=== PATIENT | male | born 1950 | race Caucasian/White ===

== ENCOUNTER 2025-01-02 10:36 | Emergency (ER) | payer MEDICARE, SELFPAY ==
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
[2025-01-02 10:38] VITALS: BP 105/59; PULSE 78; RESP 18; TEMP 36.6; O2SAT 98
--- NOTE | 2025-01-02 10:38 | ECG_ITS ---
Test Date: 2025-01-02 10:43:55 Measurements Intervals [place] Rate: 77 P: 25 WA: 179 QRS: -54 QRSD: 114 T: 51 QT: 401 QTc: 454 Interpretive Statements SINUS RHYTHM LEFT AXIS DEVIATION POSSIBLE LEFT ATRIAL ENLARGEMENT POOR R WAVE PROGRESSION CONSIDER INFERIOR INFARCT, AGE INDETERMINATE BASELINE ARTIFACT- I, II, III, AVR, AVL, AVF, V1-V2, V4-V6 ABNORMAL ECG No previous ECG available for comparison Electronically Signed On 01-03-2025 06:43:05 CDT by Cecil Carrillo D.O.
[2025-01-02 11:03] LABS: Basophils Absolute Auto 0.1 K/mm3 (0.0-0.1); Basophils Percent Auto 0.7 % (0.2-1.2); Eosinophils Absolute Auto 0.1 K/mm3 (0-0.3); Eosinophils Percent Auto 0.5 % (0-4.4); Hematocrit 47.2 % (42.0-52.0); Hemoglobin 15.5 g/dL (14.0-18.0); Immature Granulocyte Absolute 0.07 K/mm3 (0.00-0.031); Immature Granulocyte Percent A 0.7 % (0-0.5); Lymphocytes Absolute Auto 0.72 K/mm3 (0.9-3.2); Lymphocytes Percent Auto 6.7 % (18.3-44.2); Mean Corpuscular HGB Conc 32.8 g/dl (32-36); Mean Corpuscular Hemoglobin 30.1 pg (26-34); Mean Corpuscular Volume 91.7 fl (80-100); Mean Platelet Volume 9.3 fl (7.4-10.4); Monocytes Absolute Auto 0.5 K/mm3 (0.1-0.6); Monocytes Percent Auto 4.3 % (2.6-8.5); Neutrophils Absolute Auto 9.4 K/mm3 (1.3-6.7); Neutrophils Percent Auto 87.1 % (45.5-73.1); Platelet Count Result 271 k/mm3 (150-375); Red Blood Count 5.15 M/mm3 (4.6-6.20); Red Cell Distribution Width 13.4 % (11.5-14.5); White Blood Count 10.7 K/mm3 (4.5-10.0)
[2025-01-02 11:18] LABS: Alanine Aminotransferase 24 U/L (6-50); Albumin Level 4.9 g/dL (3.5-5.1); Alkaline Phosphatase 81 U/L (38-126); Anion Gap 14 mmol/L (4-12); Aspartate Amino Transferase 33 U/L (17-59); Bilirubin,Total 0.5 mg/dL (0.2-1.3); Blood Urea Nitrogen 36 mg/dL (9-20); Calcium 10.8 mg/dL (8.4-10.2); Carbon Dioxide 25 mmol/L (22-30); Chloride 99 mmol/L (98-107); Estimated CRCL calculation 41 ml/min; Estimated Glomerular Filt Rate 45; Glucose 155 mg/dL (65-110); Potassium 3.8 mmol/L (3.4-5.0); Sodium 138 mmol/L (137-145)
[2025-01-02 12:20] VITALS: BP 127/74; PULSE 78; PULSE 80; RESP 13; O2SAT 100
--- OUTSIDE RECORDS SUMMARY | 2025-01-02 12:44 | XMS_ITS | Clinical Summary ---
Author Organization Located within [facility] Address [address] [address] Care Team Providers Care Sports Editor Name Role Phone Sydney Springer Primary Care Provider [phone] Tristin Hernández M.D. Unavailable [phone] Tristin Hernández M.D. Unavailable [phone] Nikolay Lee III Unavailable Unavailab le Allergies Active Allergy Reactions Criticality Noted Date Comments Dobutamine Other 05/25/2019 Tachycardia Medications bumetanide (BUMEX) 1 mg Oral tab Take 1 tablet by mouth twice daily. 60 tablet 2 06/17/2019 1:08 PM EXPERIENCE PLANNING STRATEGIST 9 Active sacubitril-vals danis (ENTRESTO) 24/26 mg Oral tablet Take 1 tablet by mouth every 12 hours. 60 tablet 2 06/17/2019 1:08 PM EXPERIENCE PLANNING STRATEGIST 9 Active spironolactone (ALDACTONE) 25 mg Oral tablet Take 1 tablet by mouth daily. 30 tablet 2 06/17/2019 1:08 PM EXPERIENCE PLANNING STRATEGIST 9 Active metoprolol succinate (TOPROL XL) 100 mg Oral extended release tablet Take 1 tablet by mouth daily. 90 tablet 3 9 Active ivabradine (CORLANOR) 5 mg Oral tablet Take 5 mg by mouth twice daily with meals. Take with meals. Active milrinone (PRIMACOR) 20 mg in D5W - 100 mL IV 20 mg/100 mL IV pgbk by Intravenous route continuously. 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 Chronic HFrEF (heart failure with reduced ejection fraction) 05/25/2019 Chronic kidney disease 05/25/2019 Social History Tobacco Use Types Packs/Day Years Used Date Smoking Tobacco: Never Assessed Sex and Gender Information Value Date Recorded Sex Assigned at Not on file Legal Sex Male 8:18 AM CDT Gender Identity Not on file Sexual Orientation Not on file Last Filed Vital Signs Vital Sign Reading Time Taken Comments Blood Pressure 122/72 10/28/2019 12:00 AM CDT Pulse 62 10/28/2019 12:00 AM CDT Temperature 37.1 C (98.7 F) 06/17/2019 7:01 AM EXPERIENCE PLANNING STRATEGIST Respiratory Rate 16 10/28/2019 12:00 AM CDT Oxygen Saturation 94% 10/28/2019 12:00 AM CDT Inhaled Oxygen Concentration - - Weight 95.3 kg (210 lb) 10/28/2019 12:00 AM CDT Height 165.1 cm (5' 5) 06/26/2019 3:10 PM EXPERIENCE PLANNING STRATEGIST Body Mass Index 34.95 06/26/2019 3:10 PM EXPERIENCE PLANNING STRATEGIST Plan of Treatment Health Maintenance Due Date Last Done Comments FIT Test 1950 FIT-DNA Test 1950 FLEXIBLE SIGMOIDOSCOPY 1950 TDAP/TD VACCINE (1 - Tdap) 1961 DEPRESSION SCREENING 1962 COLONOSCOPY 1995 COLORECTAL CANCER SCREENING 1995 Pneumococcal Vaccine: 50+ Ye ars (1 of 1 - PCV) 2000 ZOSTER SERIES VACCINE (1 of 2) 2000 Adult RSV VACCINE (1 - Risk 60-74 years 1-dose series) 2010 COVID-19 VACCINE (3 - 2023-2 5 season) 2024 10/29/2020, 09/24/2020 INFLUENZA VACCINE (Season Ended) 2025 08/19/2023, 05/23/2022, 06/15/2020, Additional history exists HEPATITIS C SCREENING Completed 06/09/2019 Procedures Procedure Name Priority Date/Time Associated Diagnosis Comments HCV C AB SCREEN WITH REFLEX TO VIRAL LOAD ROUTINE 06/09/2019 8:03 PM EXPERIENCE PLANNING STRATEGIST from Last 3 Months or Most Recently Relevant to Health Maintenance Results * HCV C Ab Screen with Reflex to Viral Load (06/09/2019 8:03 PM EXPERIENCE PLANNING STRATEGIST) Hepatitis C Antibody Non Reactive 06/10/2019 12:09 AM EXPERIENCE PLANNING STRATEGIST [facility] Serum 06/09/2019 8:03 PM EXPERIENCE PLANNING STRATEGIST 06/09/2019 8:34 PM EXPERIENCE PLANNING STRATEGIST Candida Zaidi M.D. LAB CHEMISTRY ORDERABLES F inal Result [facility] [address] [place] [address] from Last 3 Months or Most Recently Relevant to Health Maintenance Insurance MEDICARE A ONLY [facility] [employer] Advance Directives Documents on File Type Date Recorded Patient Director Emergency Services Expl anation Power of Thread Cutter Tender 06/19/2019 6:00 PM Matthew r of Thread Cutter Tender Power of Thread Cutter Tender 06/18/2019 5:25 PM Matthew r of Thread Cutter Tender * Full Code (Latest Code Status on File) Date Activated Date Inactivated Comments 06/09/2019 3:50 PM 06/17/2019 8:06 PM Care Teams Sports Editor Relationship Specialty Start Date End Date Racheal Sydney [address] [place] [address] [phone] PCP - General 05/07/19 Tristin Hernández M.D. [address] M[address] [place] [address] Environmental Science Professor Cardiology 05/07/19 Tristin Hernández M.D. [address] [place] [address] Referring Provider Cardiology 06/08/19 Nikolay Lee III [address] [place] [address] Environmental Science Professor Cardiology 10/28/19
--- OUTSIDE RECORDS SUMMARY | 2025-01-02 12:44 | XMS_ITS | Encounter Summary ---
Author Organization [facility] Address [address] [place] [address] Care Team Providers Care Medical Massage Therapist Name Role Phone Sydney Springer Primary Care Provider [phone] Tristin Hernández M.D. Unavailable [phone] Joselito Naik Unavailable Tristin Hernández M.D. Unavailable [phone] Nikolay Lee III Unavailable Unavailab le Encounter Details Date Type Department Care Team (Late Contact Info) Description 06/25/2019 Telephone [facility] [address] [place] [address] Sydney Man, RMelissa Social History Tobacco Use Types Packs/Day Years Used Date Smoking Tobacco: Never Assessed Sex and Gender Information Value Date Recorded Sex Assigned at Not on file Legal Sex Male 8:18 AM CDT Gender Identity Not on file Sexual Orientation Not on file documented as of this encounter Plan of Treatment Not on file documented as of this encounter Visit Diagnoses Not on filedocumented in this encounter Care Teams Medical Massage Therapist Relationship Specialty Start Date End Date Sydney Springer [address] [place] [phone] PCP - General 05/07/19 Tristin Hernández M.D. [address] [facility] [address] [place] [address] Machine Spring Former Cardiology 05/07/19 Joselito Naik [address] [phone] Referring Provider Cardiology 05/07/19 10/27/19 Tristin Hernández M.D. [address] M[address] [place] [address] Referring Provider Cardiology 06/08/19 Nikolay Lee III [address] [phone] Machine Spring Former Cardiology 10/28/19 documented as of this encounter
--- OUTSIDE RECORDS SUMMARY | 2025-01-02 12:44 | XMS_ITS | Encounter Summary ---
Author Organization [facility] Address [address] [place] [address] Care Team Providers Care Instructor Ballroom Dancing Name Role Phone Sydney Springer Primary Care Provider [phone] Tristin Hernández M.D. Unavailable [phone] Joselito Naik Unavailable Tristin Hernández M.D. Unavailable [phone] Nikolay Lee III Unavailable Unavailab le Encounter Details Date Type Department Care Team (Late st Contact Info) Description 06/25/2019 Orders Only [facility] [address] [place] [address] Sydney Man, RAlejandrinaNAlejandrina Social History Tobacco Use Types Packs/Day Years [...] on filedocumented in this encounter Care Teams Instructor Ballroom Dancing Relationship Specialty Start Date End Date Sydnye Springer [address] [place] [phone] PCP - General 05/07/19 Tristin Hernández M.D. [address] [facility]. M/C [address] [place], [place] [id number] Realty Specialist Cardiology 05/07/19 Joselito Naik [address] [phone] Referring Provider Cardiology 05/07/19 10/27/19 Tristin Hernández M.D. [address] M[address] [place] [address] Referring Provider Cardiology 06/08/19 Nikolay Lee III [address] [phone] Realty Specialist Cardiology 10/28/19 documented as of this encounter
--- OUTSIDE RECORDS SUMMARY | 2025-01-02 12:44 | XMS_ITS ---
Author Organization [facility] Address [address] [address] Care Team Providers Care Senior Research Engineer Name Role Phone Sydney Springer Primary Care Provider [phone] Tristin Hernández M.D. Unavailable [phone] Tristin Hernández M.D. Unavailable [phone] Nikolay Lee III Unavailable Unavailab le Transplant Episode Heart Candidate [facility] ([place], [place]) - [facility] Referred on 06/05/2019 Marked as Active on 06/05/2019 Heart CoordinatorLeta Brower R.N. Phone: N/A Fax: N/A Email: N/A Care Team Name Role Phone Fax Email Leta Brower R.N. Technology Project Manager N/A N/A N/A Events Pre-Transplant Referred: 06/05/2019
--- OUTSIDE RECORDS SUMMARY | 2025-01-02 12:44 | XMS_ITS | Encounter Summary ---
Author Organization [facility] Address [address] [place] [address] Care Team Providers Care Buckle Strap Drum Operator Name Role Phone Sydney Springer Primary Care Provider [phone] Tristin Hernández M.D. Unavailable [phone] Joselito Naik Unavailable Tristin Hernández M.D. Unavailable [phone] Nikolay Lee III Unavailable Unavailab le Encounter Details Date Type Department Care Team (Late st Contact Info) Description 06/03/2019 Abstract [facility] [address] [place] [address] Charmaine Kulkarni Social History Tobacco Use Types Packs/Day Years [...] on filedocumented in this encounter Care Teams Buckle Strap Drum Operator Relationship Specialty Start Date End Date RachealSydney phelps [address] [place] [phone] PCP - General 05/07/19 Tristin Hernández M.D. [address] [facility]. M/C [address] [place] [address] Adjunct Physical Education Instructor Cardiology 05/07/19 Joselito Naik [address] [phone] Referring Provider Cardiology 05/07/19 10/27/19 Tristin Hernández M.D. [address] M[address] [place] [address] Referring Provider Cardiology 06/08/19 Nikolay Lee III [address] [phone] Adjunct Physical Education Instructor Cardiology 10/28/19 documented as of this encounter
--- OUTSIDE RECORDS SUMMARY | 2025-01-02 12:44 | XMS_ITS | Encounter Summary ---
Author Organization [facility] Address [address] [place] [address] Care Team Providers Care Biodiesel Product Manager Name Role Phone Sydney Springer Primary Care Provider [phone] Tristin Hernández M.D. Unavailable [phone] Joselito Naik Unavailable Tristin Hernández M.D. Unavailable [phone] Nikolay Lee III Unavailable Unavailab le Encounter Details Date Type Department Care Team (Late st Contact Info) Description 06/24/2019 Orders Only [facility] PR[facility] Mail Address: 1. created 09/16/07 - Marissa Potterza [place]: Caprice Sanchez M.D. [address] [place] [address] M[address]C [address] [place] [address] Social History Tobacco Use Types Packs/Day Years Used Date Smoking Tobacco: Never Assessed Sex and Gender Information Value Date Recorded Sex Assigned at Not on file Legal Sex Male 8:18 AM CDT Gender Identity Not on file Sexual Orientation Not on file documented as of this encounter Procedure Notes * Caprice Sanchez M.D. - 06/24/2019 12:34 PM CSTAssociated Order(s): SOLID ORGAN PATIENT SUMMARY REPORT [facility] Transplant Immunology and Immunogenetics Laboratory [email or web address] 0006 CLIA License: [id number] [address] [place] [address], Room [address] number: [id number] [place] [address] UNOS number: [id number] Director: Carmelita Suero, Ph.D., D([facility]) CAP number: [id number] [facility] PFI number: [id number] Patient Name: WALLACE, RADHA Medical Record / ID number: [id number] Attending Physician: CAPRICE SANCHEZ Report date: 06/24/2019 Report type: Solid Organ Transplant Patient Report Institution: [facility] HLA Typing Results Sample Type: ACD+CLOT : 50 ID#: [id number] Sample Date: 06/09/19 Tested Date: 06/24/19 Class I: Molecular: A* B* C* 01:01 35:01 04:01 03:01 57:01 06:02 Serologic A B Bw Cw Equivalent(s): 1 35 6 4 3 57 4 6 Class II: Molecular: DRB1* DRB3* DRB4* DRB5* DQB1* DPB1* DQA1* DPA1* 01:01P 01:03N 03:03 04:01 01:01 01:03 07:01P 05:01P 464:01 02:[address] DQ Equivalent(s): 1 9 7 5 HLA low resolution performed by reverse sequence specific oligonucleotide probe hybridization (rSSOP) based microarray assay or Next Generation Sequencing (NGS). HLA high resolution typing performed by sequence-based typing (SBT) or NGS. HLA Antibody Results Last known IgG Antibodies: Strong: None Moderate/Weak: None Tested Sample Date Test Class Dilution Treat PRA% Strong Moderate/Weak Date 06/09/19 CL I AB ID CLASS I NEAT EDTA 0 06/10/19 06/09/19 CL II AB ID CLASS II NEAT EDTA 0 06/10/19 Antibody testing performed by solid phase assay(s). AB ID are the phenotype beads; SA are the single antigen beads Comments No HLA antibodies were detected. Radha Wallace ambiguities [2,3]: Allele ambiguities: DRB1*01:01: DRB1*01:100 has not been ruled out. DRB1*07:01: DRB1*07:79 and DRB1*07:93 have not been ruled out. DQB1*05:01: DQB1*05:183, DQB1*05:193, DQB1*05:194, and DQB1*05:195 have not been ruled out. Next generation sequencing (NGS), sequence specific primer (SSP), rSSOP, and/or additional sequencing primers were used to resolve allele ambiguities. High resolution typing is defined as a set of alleles that encode the same protein (P) sequence forthe antigen binding site of the HLA molecule and excludes alleles that are not expressed on the cell surface (e.g. null (N) alleles) [1, 6]. HLA ambiguities are resolved based on the National Marrow Donor Program (NMDP) confirmatory typing requirements policy [3] and the [place] Society for Histocompatibility and Immunogenetics (THIAGO) guidelines [2]. Basedon these guidelines, alleles that differ at positions outside the peptide binding groove/antigen recognition site and/oralleles of low frequency in the population are not resolved. REFERENCES 1. Rhea E, et al. Definitions of histocompatibility typing terms. Blood 2011; 118: y913-x804. 2. Spencer PEÑALOZA, et al. Common and well-documented HLA alleles: 2012 update to the CWD catalogue. TissueAntigens, 2013; 81: 194-203. 3. http://bioinformatics.nmdp.org/Policies/NMDP_Confirmatory_Typing_Requirements_(P DF).aspx 4. Damon R, et al. The HLA Dictionary 2008: a summary of HLA-A, -B, -C, - DRB1/3/4/5, -DQB1 alleles and their association with serologically defined HLA-A, -B, -C, -DR and -DQ antigens. Tissue Antigens 2009; 73: 95-170. 5. Torres K, et al. Effect of C-btcd-qqhkhaw matching at HLA-DPB1 in recipients of unrelated-donor haemopoietic-cell transplantation: a retrospective study. Lancet Oncol. 2012; 13: 366-74. 6. HLA alleles included in the protein (P) groups may be referenced at http://hla.alleles.org/alleles/p_groups.html. 7. Kamla M, et al. Blood 2014; 123:1270-8 8. Kamla Michele, et al. Blood 2013; 121:4603-10 Electronically signed by Designee Perla Peters MLT ([facility]), [facility] Carmelita Suero, PhD, D([facility]) Perla Peters MLT ([facility])REEMA, T Transplant Immunology and Immunogenetics Chief Histocompatibility Technologist Acquisition Marketing Coordinator Professor, Department of Pathology This test was developed in and its performance characteristics determined by the Transplant Immunology and Immunogenetics Laboratory, [facility]. It has not been cleared or approved by the U.S. Food and Drug Administration (FDA). The FDA has determined that such clearance or approval is not necessary. These tests are used for clinical purposes. It should not be regarded as investigational or for research. This laboratory is certified under the Clinical Laboratory Improvement Amendments of 1988 (CLIA) as qualified to perform high complexity clinical laboratory testing. CONVEYOR FEEDER documented in this encounter Plan of Treatment Not on file documented as of this encounter Procedures Procedure Name Priority Date/Time Associated Diagnosis Comments SOLID ORGAN PATIENT SUMMARY REPORT 06/24/2019 12:34 PM CAN CONVEYOR FEEDER documented in this encounter Results * SOLID ORGAN PATIENT SUMMARY REPORT (06/24/2019 12:34 PM CAN CONVEYOR FEEDER) 06/24/2019 12:3 4 PM CAN CONVEYOR FEEDER 06/24/2019 12:34 PM CAN CONVEYOR FEEDER Narrative Procedure Note Caprice Sanchez M.D. - 06/24/2019 12:34 PM CST [facility] Transplant Immunology and Immunogenetics Laboratory [email or web address] 0006 CLIA License: [id number] [address] [place] [address], [address] number: [id number] [place] [address] UNOS number: [id number] Director: Carmelita Suero, Ph.D., D([facility]) CAP number: [id number] [facility] PFI number: [id number] Patient Name: RADHA WALLACE Medical Record / ID number: [id number] Attending Physician: CAPRICE SANCHEZ Report date: 06/24/2019 Report type: Solid Organ Transplant PatientReport Institution: [facility] HLA Typing Results Sample Type: ACD+CLOT : 50 ID#: [id number] Sample Date: 06/09/19 Tested Date: 06/24/19 Class I: Molecular: A* B* C* 01:01 35:01 04:01 03:01 57:01 06:02 Serologic A B Bw Cw Equivalent(s): 1 35 6 4 3 57 4 6 Class II: Molecular: DRB1* DRB3* DRB4* DRB5* DQB1* DPB1* DQA1* DPA1* 01:01P 01:03N 03:03 04:01 01:01 01:03 07:01P 05:01P 464:01 02:[address] DQ Equivalent(s): 1 9 7 5 HLA low resolution performed by reverse sequence specific oligonucleotideprobe hybridization (rSSOP) based microarray assay or Next Generation Sequencing (NGS). HLA highresolution typing performed by sequence-based typing (SBT) or NGS. HLA Antibody Results Last known IgG Antibodies: Strong: None Moderate/Weak: None Tested Sample Date Test Class Dilution Treat PRA% Strong Moderate/Weak Date 06/09/19 CL I AB ID CLASS I NEAT EDTA 0 06/10/19 06/09/19 CL II AB ID CLASS II NEAT EDTA 0 06/10/19 Antibody testing performed by solid phase assay(s). AB ID are thephenotype beads; SA are the single antigen beads Comments No HLA antibodies were detected. Radha Wallace ambiguities [2,3]: Allele ambiguities: DRB1*01:01: DRB1*01:100 has not been ruled out. DRB1*07:01: DRB1*07:79 and DRB1*07:93 have not been ruled out. DQB1*05:01: DQB1*05:183, DQB1*05:193, DQB1*05:194, and DQB1*05:195 havenot been ruled out. Next generation sequencing (NGS), sequence specific primer (SSP), rSSOP,and/or additional sequencing primers were used to resolve allele ambiguities. High resolution typing is defined as a set of alleles that encode thesame protein (P) sequence for the antigen binding site of the HLA molecule and excludes alleles that are not expressed on thecell surface (e.g. null (N) alleles) [1, 6]. HLA ambiguities are resolved based on the National Marrow Donor Program(NMDP) confirmatory typing requirements policy [3] and the [place] Society for Histocompatibility and Immunogenetics(THIAGO) guidelines [2]. Based on these guidelines, alleles that differ at positions outside the peptide bindinggroove/antigen recognition site and/or alleles of low frequency in the population are not resolved. REFERENCES 1. Rhea E, et al. Definitions of histocompatibility typing terms. Ptcfk4058; 118: g410-m469. 2. Spencer PEÑALOZA, et al. Common and well-documented HLA alleles: 2012 update tothe CWD catalogue. Tissue Antigens, 2013; 81: 194-203. 3.http://bioinformatics.nmdp.org/Policies/NMDP_Confirmatory_Typing_Requirements_ (PDF) .aspx 4. Damon R, et al. The HLA Dictionary 2008: a summary of HLA-A, -B,-C, -DRB1/3/4/5, -DQB1 alleles and their association with serologically defined HLA-A, -B, -C, -DR and -DQantigens. Tissue Antigens 2009; 73: 95-170. 5. Torres K, et al. Effect of O-bksv-ttzsfve matching at HLA-DPB1in recipients of unrelated-donor haemopoietic-cell transplantation: a retrospective study. Lancet Oncol. 2012; 13: 366-74. 6. HLA alleles included in the protein (P) groups may be referenced athttp://hla.alleles.org/alleles/p_groups.html. 7. Kamla Michele, et al. Blood 2014; 123:1270-8 8. Kamla M, et al. Blood 2013; 121:7983-10 Electronically signed by Designee KRUNAL AlfredT ([facility]), [facility] Carmelita Suero, PhD, D([facility]) Perla Peters MLT ([facility])REEMA, T Transplant Immunology and Immunogenetics Chief HistocompatibilityTechnologist Acquisition Marketing Coordinator Professor, Department of Pathology This test was developed in and its performance characteristics determinedby the Transplant Immunology and Immunogenetics Laboratory, [facility]. It has not been cleared or approved bythe U.S. Food and Drug Administration (FDA). The FDA has determined that such clearance or approval is not necessary. These testsare used for clinical purposes. It should not be regarded as investigational or for research. This laboratory is certified under theClinical Laboratory Improvement Amendments of 1988 (CLIA) as qualified to perform high complexity clinical laboratory testing. Caprice Sanchez M.D. LABORATORY Final Resu lt documented in this encounter Visit Diagnoses Not on filedocumented in this encounter Care Teams Biodiesel Product Manager Relationship Specialty Start Date End Date Sydney Springer [address] [phone] PCP - General 05/07/19 Tristin Hernández M.D. [address] M[address] [place] [address] Architecture Consultant Cardiology 05/07/19 Joselito Naik [address] [phone] Referring Provider Cardiology 05/07/19 10/27/19 Tristin Hernández M.D. [address] [facility] [facility] [address] M[address] [place] [address] Referring Provider Cardiology 06/08/19 Nikolay Lee III [address] [phone] Architecture Consultant Cardiology 10/28/19 documented as of this encounter
--- OUTSIDE RECORDS SUMMARY | 2025-01-02 12:44 | XMS_ITS ---
Author Organization [facility] [place] Care Team Providers Care Outside Energy Sales Representatives Name Role Phone Arash Garay Unavailable Unavailable Allergies and adverse reactions Code CodeSystem Substance Reaction Severity StartDate Concern Status 3616 RXNORM DOBUTamine Unknown 07/15/2023 active Care Team Name Role Address Phone Organization Dates [place], [address], [facility] (Office): : [facility] 07/17/2023 - 07/26/2023 Mental Status Section Date Assessment Total Score Description 07/26/2023 CAM 0 No delirium ind icated 07/23/2023 BIMS 15 cognitively int act CAM 0 No delirium ind icated PHQ-9 13 moderate depres chris Problems Problem # Description Date of onset Resolved Date Code CodeSystem Concern Status 1 URINARY TRACT INFECTION, SITE NOT SPECIFIED 07/16/[address] active 2 ABNORMAL LEVELS OF OTHER SERUM ENZYMES 07/15/[address] active 3 ACIDOSIS, UNSPECIFIED 07/15/[address] active 4 ACUTE ON CHRONIC SYSTOLIC (CONGESTIVE) HEART FAILURE 07/15/[address] active 5 ATELECTASIS 07/15/[address] active 6 CARDIOGENIC SHOCK 07/15/[address] active [address]ARDIOMYOPATHY, UNSPECIFIED 07/15/[address] active 8 LOCALIZED EDEMA 07/15/[address] a ctive 9 MALIGNANT CARCINOID TUMOR OF THE BRONCHUS AND LUNG 07/15/[address] active 10 NONRHEUMATIC MITRAL VALVE DISORDER, UNSPECIFIED 07/15/[address] active 11 PLEURAL EFFUSION IN OTHER CONDITIONS CLASSIFIED ELSEWHERE 07/15/[address] active 12 PNEUMONIA, UNSPECIFIED ORGANISM 07/15/[address] active 13 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 ICD-10-CM active 14 SOLITARY PULMONARY NODULE 07/15/[address] active Reason for Referral No Reasons for Referral Entered Social History Social History Observation Description Start Date End Date Code Code System Current Smoking Status Tobacco smoking consumption unknown 940124719 SNOMED CT Sex Assigned At Male 1950 44928-6 [facility] Gender Identity Vital Signs Code Code System Vitals Name Values and Units Timing Information 9279-1 [facility] Respiratory Rate Value=20.0 Units=/m in 07/26/2023 8462-4 [facility] Blood Pressure-Diastolic Value=48 Un its=mmHg 07/26/2023 8480-6 [facility] Blood Pressure-Systolic Value=82 Uni ts=mmHg 07/26/2023 8310-5 [facility] Body Temperature Value=98.2 Units= F 07/26/2023 8867-4 [facility] Heart rate Value=70.0 Units=/min 91850-9 [facility] O2 % BldC Oximetry Value=98.0 Units= % 07/26/2023 54150-6 [facility] Pain Level Value=0.0 07/26/2023 8302-2 [facility] Height Value=78.0 Units=Inches 07/24/2023 44539-2 [facility] Weight Vpegy=435.0 Units=Lbs
[2025-01-02 12:53] VITALS: BP 120/63; PULSE 71
[2025-01-02 12:55] VITALS: BP 118/69; PULSE 89
[2025-01-02 12:57] VITALS: BP 104/76; PULSE 128
--- NOTE | 2025-01-02 13:38 | ED_ITS ---
HPI - Syncope General Chief Complaint: Syncope Stated Complaint: syncope Time Seen by Provider: 01/02/25 12:21 History of Present Illness HPI narrative: Patient is 74-year-old male who presents ER after a possible syncopal episode, but he thinks he just fell asleep while watching his grandson play baseball. Reports he can hear people talking to him in he thought it was a dream. Patient has history of metastatic prostate cancer. He drove down from [facility] for the game. He has specialists for his kidneys and prostate in [place]. He is having no chest pain. No fevers or chills. He did not eat today. Patient states he often goes on a walk and will get tired and sit in a car and have a 10 minute nap and this felt similar. Related Data Allergies Allergy/AdvReac Type Severity Reaction Status Date / Time No Known Allergies Allergy Verified 01/02/25 10:42 Review of Systems 2 Review of Systems: All systems reviewed & are unremarkable except as noted in HPI and below Constitutional: Constitutional: Reports no additional constitutional complaints Cardiovascular: Cardiovascular: Reports no additional cardiovascular complaints Respiratory: Respiratory: Reports no additional respiratory complaints Musculoskeletal: Musculoskeletal: Reports no additional musculoskeletal complaints Neurologic: Reports system reviewed and no additional complaints, except as documented PMFSH Past Medical History Medical History (Updated 01/02/25 @ 13:44 by Basil Gage MD) Chronic kidney disease Prostate cancer Exam 2 Narrative: GENERAL: Well-appearing, well-nourished, and in no acute distress. HEAD: Normocephalic, atraumatic. ENT: Mucous membranes moist. CHEST: Clear to auscultation. No respiratory distress. HEART: Regular rate and rhythm. Normal peripheral pulses. ABDOMEN: Soft, nontender, nondistended. EXTREMITIES: Normal range of motion. No edema. SKIN: Warm, dry, no rash. NEURO: Alert and oriented x3. PSYCH: Normal mood and affect. Course Course Emergency Course: Patient resting comfortably. Feel appropriate for discharge. He has family with him who are comfortable driving him back to [place]. Patient reports he has a known lung nodule in the right side and he has undergone bronchoscopy with biopsy and there is no malignancy. Will not investigate chest x-ray further. Vital Signs Vital signs: Vital Signs Temperature 97.8 F 01/02/25 10:38 Pulse Rate 78 01/02/25 10:38 Respiratory Rate 18 01/02/25 10:38 Blood Pressure 105/59 L 01/02/25 10:38 Pulse Oximetry 98 01/02/25 10:38 Oxygen Delivery Room Air 01/02/25 10:38 Temperature 97.8 F 01/02/25 10:38 Pulse Rate 128 H 01/02/25 12:57 Respiratory Rate 13 01/02/25 12:20 Blood Pressure 104/76 01/02/25 12:57 Pulse Oximetry 100 01/02/25 12:20 Oxygen Delivery Room Air 01/02/25 10:38 MDM - Syncope Lab Data 01/02/25 10:55 01/02/25 10:55 Labs: Lab Results 01/02/25 Range/Units 10:55 WBC 10.7 H (4.5-10.0) K/mm3 RBC 5.15 (4.6-6.20) M/mm3 Hgb 15.5 (14.0-18.0) g/dL Hct 47.2 (42.0-52.0) % MCV 91.7 (80-100) fl MCH 30.1 (26-34) pg MCHC 32.8 (32-36) g/dl RDW 13.4 (11.5-14.5) % Plt Count 271 (150-375) k/mm3 MPV 9.3 (7.4-10.4) fl Immature Gran % (Auto) 0.7 H (0-0.5) % Neut % (Auto) 87.1 H (45.5-73.1) % Lymph % (Auto) 6.7 L (18.3-44.2) % [place] % (Auto) 4.3 (2.6-8.5) % Eos % (Auto) 0.5 (0-4.4) % Baso % (Auto) 0.7 (0.2-1.2) % Lymph # (Auto) 0.72 L (0.9-3.2) K/mm3 [place] # (Auto) 0.5 (0.1-0.6) K/mm3 Eos # (Auto) 0.1 (0-0.3) K/mm3 Baso # (Auto) 0.1 (0.0-0.1) K/mm3 Abs Immat Gran (auto) 0.07 H (0.00-0.031) K/mm3 Absolute Neuts (auto) 9.4 H (1.3-6.7) K/mm3 Absolute Nucleated RBC 0.000 (0.0-0.012) K/mm3 Nucleated RBC % 0.0 (0.0-0.2) % Sodium 138 (137-145) mmol/L Potassium 3.8 (3.4-5.0) mmol/L Chloride 99 (98-107) mmol/L Carbon Dioxide 25 (22-30) mmol/L Anion Gap 14 H (4-12) mmol/L BUN 36 H (9-20) mg/dL Creatinine 1.52 H (0.7-1.3) mg/dL Estim Creat Clear Calc 41 ml/min Estimated GFR 45 L (59 - ) Glucose 155 H (65-110) mg/dL Calcium 10.8 H (8.4-10.2) mg/dL Total Bilirubin 0.5 (0.2-1.3) mg/dL AST 33 (17-59) U/L ALT 24 (6-50) U/L Alkaline Phosphatase 81 (38-126) U/L Total Protein 9.0 H (6.3-8.2) g/dL Albumin 4.9 (3.5-5.1) g/dL Imaging Data Radiologist's impression: ITS Impressions Chest X-Ray 01/02/25 11:28 Impression: 1: Nodular opacity right lung base, suspicious for bronchogenic carcinoma. Correlation with CT chest with contrast recommended. Discharge Plan Discharge Clinical Impression: Fatigue Patient Disposition: Home Condition: Stable Additional Instructions: Return ER if you have recurrent loss of consciousness, have chest pain shortness of breath, you cannot keep down food water, or you have additional concerns. Patient Language: Luxembourgish Follow-up/Referrals: PHYSICIAN NOT ON STAFF,NONSTAFF [Primary Care Provider] - 1 Week
[2025-01-02 14:16] VITALS: BP 106/69; PULSE 88; RESP 16; TEMP 36.6; O2SAT 98
== END 2025-01-02 14:17 | disposition home or self-care (01) ==
PROVIDERS: Emergency Provider Emergency Medicine
DX: R53.83 Other fatigue (principal); R91.1 Solitary pulmonary nodule; N18.9 Chronic kidney disease, unspecified; C61 Malignant neoplasm of prostate
CPT/HCPCS: 36415; 71046; 80053; 85025; 93005; 99284